=== PATIENT | male | born 1960 | race Caucasian/White ===

== ENCOUNTER 2021-11-10 11:07 | Emergency (ER) | payer OTHER ==
[~2021-11-10 11:07] MED LIST: NORVASC 5 MG TAB5 MG PO
[2021-11-10 12:45] LABS: HEMOGLOBIN 15.6 gm/dl (14.0-17.5); RED BLOOD COUNT 4.98 M/UL (4.20-5.50); WHITE BLOOD COUNT 8.2 K/UL (4.5-11.0)
[2021-11-10 13:13] LABS: BUN/CREATININE RATIO 13 (0-10)
== END 2021-11-10 15:02 | disposition home or self-care (01) ==
LOC: ER1 11:07
PROVIDERS: Nurse Practitioner
DX: U07.1 COVID-19 (principal); F17.210 Nicotine dependence, cigarettes, uncomplicated
CPT/HCPCS: 71045; 80053; 81001; 82550; 82553; 84484; 85025; 93005; 99284; U0002